=== PATIENT | female | born 1940 | race African-American/Black ===

== ENCOUNTER 2016-08-02 23:41 | Emergency (ER) | payer MEDICARE ==
[2016-08-02 22:48] LABS: BASOPHILS 0.4 %; BASOPHILS ABSOLUTE 0.04 10/3/uL (0.0-0.16); EOSINOPHILS ABSOLUTE 0.28 10/3/uL (0.0-0.53); ER CBC TAT 0 Hrs 08 Mins; HEMATOCRIT 36.8 % (36.0-48.0); HEMOGLOBIN 11.8 g/dL (12.0-16.0); IMMATURE GRANULOCYTES 0.3 %; IMMATURE GRANULOCYTES ABSOLUTE 0.03 10/3/uL (0.0-0.11); LYMPHOCYTES 38.6 %; LYMPHOCYTES ABSOLUTE 3.55 10/3/uL (0.67-4.30); MEAN CORPUSCULAR HEMOGLOB 27.8 pg (26.0-34.0); MEAN PLATELET VOLUME 9.6 fL (9.2-13.0); MONOCYTES 7.9 %; MONOCYTES ABSOLUTE 0.73 10/3/uL (0.21-1.20); NEUTROPHILS 49.8 %; NEUTROPHILS ABSOLUTE 4.57 10/3/uL (2.02-8.40); PLATELET COUNT 237 10/3/uL (150-400); RBC DISTRIBUTION WIDTH 13.4 % (12.0-16.0); RED CELL COUNT 4.24 10/6/uL (4.0-5.6); WHITE BLOOD CELLS 9.2 10/3/uL (4.5-10.5)
[2016-08-02 22:50] LABS: MANUAL DIFF NO %; MEAN CORPUS HGB CONC 32.1 g/dL (32.0-36.0); MEAN CORPUSCULAR VOLUME 86.8 fL (80-100)
[2016-08-02 22:54] LABS: ASCORBIC ACID (UR NOT ORDER) NEG (NEG); BILIRUBIN, URINE NEGATIVE (NEG); ER URINALYSIS TAT 0 Hrs 14 Mins; KETONE, URINE NEGATIVE (NEG); LEUKOCYTE ESTERASE(NOT OR LARGE (NEG); NITRITE (URINE) NEG (NEG); WBC (NOT ORDERED) (RFLEX) 47 (0-5)
[2016-08-02 22:56] LABS: INTERNATIONAL NORMAL RATI 1.3 UNITS (-); PARTIAL THROMBO TIME 30.9 SEC (22.5-37.2); PROTIME (NOT ORD) 15.7 SEC (12.0-14.5)
[2016-08-02 23:04] LABS: A/G RATIO 0.8 (0.7-1.9); ALBUMIN 3.3 G/DL (3.5-5.0); ALKALINE PHOSPHATASE 102 U/L (45-117); BUN (BLOOD UREA NITROGEN) 17 MG/DL (6-23); CALCIUM, SERUM 9.4 MG/DL (8.5-10.4); CHLORIDE, SERUM 104 MMOL/L (96-112); CO2 (CARBON DIOXIDE) 28 MMOL/L (24-34); CREATININE 0.86 MG/DL (0.55-1.02); GFR AFRICAN AMERICAN 76 ML/MIN (>=60); GFR NON AFRICAN AMERICAN 65 ML/MIN (>=60); GLOBULIN 4.4 G/DL (2.5-4.1); GLUCOSE, SERUM 135 MG/DL (60-99); POTASSIUM, SERUM 3.6 MMOL/L (3.5-5.3); SGOT(AST) 10 U/L (5-40); SGPT(ALT) 15 U/L (5-65); SODIUM, SERUM 140 MMOL/L (135-148); TOTAL BILIRUBIN 0.2 MG/DL (0-1.2); TOTAL PROTEIN 7.7 G/DL (6.0-8.5); TROPONIN I <0.02 NG/ML (<0.05)
[~2016-08-02 23:41] MED LIST: 8 HOUR650 MG PO; ARICEPT10 PO; ASAB PO; BISR PR; CARD90 PO; DIGITEK0.125 MG PO; FLEETS ENEMA PR; GLUCOPHAGE1000 MG PO; HEPA50006 SC; HUMULIN R1 ML SC; IMOD PO; K-TABS10 MEQ PO; KONSYL100 % PO; LOP25 PO; LOP50 PO; MAGNEBIND PO; MAGOX4; MELA3 PO; METHIMAZOLE5 MG PO; MEVACOR PO; MIRALAXPKT PO; MOMUD PO; MULTIVIT/MIN PO; OPTHALMIC OPH; PREDFORTE OPH; PRILOSEC40 MG PO; PRIN20 PO; PRINZIDE1 TAB PO; PROAIR HFA INH; REG PO; TAPAZOLE5 MG PO; ULTRAM50 PO; VITAMIN D1000 UNI1 PO; VITAMIN D2000 UNIT PO; VOLTAREN1 % TOP; ZESTORETIC1 TAB PO; ZOFRAN4 PO
== END 2016-08-03 00:48 | disposition home or self-care (01) ==
LOC: ER 23:41
PROVIDERS: Nurse Practitioner Acute Care
DX: N39.0 Urinary tract infection, site not specified (principal); R41.82 Altered mental status, unspecified; F03.90 Unspecified dementia, unspecified severity, without behavioral disturbance, psychotic disturbance, mood disturbance, and anxiety; I48.0 Paroxysmal atrial fibrillation; E11.9 Type 2 diabetes mellitus without complications; E05.90 Thyrotoxicosis, unspecified without thyrotoxic crisis or storm; N18.9 Chronic kidney disease, unspecified; Z79.899 Other long term (current) drug therapy; Z79.4 Long term (current) use of insulin; Z88.8 Allergy status to other drugs, medicaments and biological substances
CPT/HCPCS: 70450; 71010; 80053; 81001; 83605; 84484; 85025; 85610; 85730; 87040; 87077; 87086; 87186; 96374; 99285